=== PATIENT | female | born 1970 | race Caucasian/White ===

== ENCOUNTER 2024-09-17 22:05 | Inpatient (IN) | payer OTHER ==
[~2024-09-17] VITALS: Ht 157.5 cm; Wt 88.5 kg
[2024-09-17 23:09] LABS: BASOPHILS # (AUTO) 0.1 K/uL (0.0-0.2); BASOPHILS % (AUTO) 0.9 % (0.0-2.0); EOSINOPHILS # (AUTO) 0.1 K/uL (0.0-0.7); EOSINOPHILS % (AUTO) 1.1 % (0.0-6.0); HEMATOCRIT 44 % (33-45); HEMOGLOBIN 14.6 g/dL (11.5-14.8); LYMPHOCYTES # (AUTO) 1.4 K/uL (0.8-4.8); MEAN CORPUSCULAR HEMOGLOBIN 31 PG (26.0-33.0); MEAN CORPUSCULAR HGB CONC 33 g/dl (31.0-36.0); MEAN CORPUSCULAR VOLUME 95 fL (82-100); MONOCYTES # (AUTO) 0.3 K/uL (0.1-1.30); MONOCYTES % (AUTO) 5.3 % (2.0-12.0); NEUTROPHILS # (AUTO) 3.9 K/uL (1.8-8.9); NEUTROPHILS % (AUTO) 67.7 % (43.0-81.0); PLATELET COUNT (AUTO) 232 K/uL (150-450); RED BLOOD CELL COUNT(AUTO) 4.65 MIL/uL (4.0-5.2); RED CELL DISTRIBUTION WIDTH 13.5 % (11.5-15.0); WHITE BLOOD COUNT (AUTO) 5.8 K/uL (4.3-11.0)
[2024-09-17 23:33] LABS: CALCIUM, SERUM 9.1 mg/dL (8.5-10.1); CARBON DIOXIDE 25 mmol/L (21-32); CHLORIDE 99 mmol/L (98-107); POTASSIUM 3.7 mmol/L (3.5-5.1); SODIUM SERUM 134 mmol/L (136-145); UREA NITROGEN, BLOOD 15 mg/dL (7-18)
[2024-09-17 23:36] LABS: GLUCOSE 680 mg/dL (74-106)
[2024-09-18] MEDS: ASPIRIN 325 MG TABLET PO ONE (00:08)
[2024-09-18] MEDS: IV NS 0.9% 1,000 ML BAG IV ONE (00:08)
[2024-09-18] MEDS ORDERED: HEPARIN INFUSION/D5W 500 ML IV ONE ×2 (01:44→02:00)
[2024-09-18] MEDS ORDERED: HEPARIN SODIUM, PORCINE 5000 UNITS/1 ML VIAL ONE (01:45)
[2024-09-18] MEDS: HEPARIN SODIUM, PORCINE 5000 UNITS/1 ML VIAL IV ONE (01:57)
[2024-09-18] MEDS ORDERED: METOPROLOL TARTRATE 50 MG TABLET ONE (02:15)
[2024-09-18] MEDS ORDERED: METOPROLOL TARTRATE INJ 5 MG/5 ML AMPUL ONE (02:15)
[2024-09-18] MEDS: METOPROLOL TARTRATE INJ 5 MG/5 ML AMPUL IV ONE (02:24)
[2024-09-18] MEDS: METOPROLOL TARTRATE 25 MG TABLET PO ONE (02:25)
[2024-09-18] MEDS ORDERED: ENOXAPARIN SODIUM 80 MG/0.8 ML DISP.SYRIN SQ ONE (02:30)
[2024-09-18 02:32] LABS: INR 1.05 (0.91-1.10); PARTIAL THROMBOPLASTIN TIME 26.1 SEC (24.3-34.3); PROTHROMBIN TIME 11.1 SECS (9.2-11.1)
[2024-09-18] MEDS ORDERED: Z GUARD REMEDY 4 OZ OINT TP PRN (03:00)
[2024-09-18] MEDS ORDERED: MAG HYDROX/AL HYDROX/SIMETH 30 ML UDC PO PRN (03:00)
[2024-09-18] MEDS ORDERED: MAGNESIUM HYDROXIDE 30 ML UDC PO PRN (03:00)
[2024-09-18] MEDS ORDERED: DEXTROSE 50%-WATER 50 ML DISP.SYRIN IV PRN (03:00)
[2024-09-18] MEDS ORDERED: ACETAMINOPHEN 325 MG TABLET PO PRN (03:00)
[2024-09-18] MEDS ORDERED: METOPROLOL TARTRATE INJ 5 MG/5 ML AMPUL IVP PRN (03:30)
[2024-09-18] MEDS ORDERED: ENOXAPARIN SODIUM 30 MG/0.3 ML DISP.SYRIN ONE (03:32)
[2024-09-18] MEDS ORDERED: ENOXAPARIN SODIUM 60 MG/0.6 ML DISP.SYRIN SQ ONE (03:32)
[2024-09-18] MEDS: ENOXAPARIN SODIUM 80 MG/0.8 ML DISP.SYRIN SQ ONE (03:42)
[2024-09-18] MEDS: *INSULIN REGULAR(HUMULIN R)HUM 100 UNIT/ML VIAL SQ PRN (05:59)
[2024-09-18] MEDS: MORPHINE SULFATE INJ 2 MG/ML DISP.SYRIN IM ONE (06:25)
[2024-09-18 06:43] LABS: BASOPHILS % (AUTO) 0.8 % (0.0-2.0); EOSINOPHILS % (AUTO) 0.8 % (0.0-6.0); HEMATOCRIT 41 % (33-45); HEMOGLOBIN 13.6 g/dL (11.5-14.8); LYMPHOCYTES # (AUTO) 1.9 K/uL (0.8-4.8); LYMPHOCYTES % (AUTO) 31.1 % (20.0-44.0); MEAN CORPUSCULAR HEMOGLOBIN 31 PG (26.0-33.0); MEAN CORPUSCULAR HGB CONC 33 g/dl (31.0-36.0); MEAN CORPUSCULAR VOLUME 93 fL (82-100); MONOCYTES # (AUTO) 0.3 K/uL (0.1-1.30); MONOCYTES % (AUTO) 4.4 % (2.0-12.0); NEUTROPHILS # (AUTO) 3.8 K/uL (1.8-8.9); NEUTROPHILS % (AUTO) 62.9 % (43.0-81.0); PLATELET COUNT (AUTO) 237 K/uL (150-450); RED BLOOD CELL COUNT(AUTO) 4.38 MIL/uL (4.0-5.2); RED CELL DISTRIBUTION WIDTH 13.4 % (11.5-15.0)
[2024-09-18 07:02] LABS: INR 1.07 (0.91-1.10); PARTIAL THROMBOPLASTIN TIME 37.3 SEC (24.3-34.3); PROTHROMBIN TIME 11.3 SECS (9.2-11.1)
[2024-09-18 07:14] LABS: CALCIUM, SERUM 8.9 mg/dL (8.5-10.1); CARBON DIOXIDE 25 mmol/L (21-32); CHLORIDE 103 mmol/L (98-107); CHOLESTEROL 256 mg/dL (<200); CREATININE 0.8 mg/dL (0.6-1.3); GLUCOSE 346 mg/dL (74-106); HDL CHOLESTEROL 50 mg/dL (40-60); LDL 170 mg/dL (0-99); MAGNESIUM 1.8 mg/dL (1.8-2.4); PHOSPHORUS 3.1 mg/dL (2.5-4.9); POTASSIUM 3.9 mmol/L (3.5-5.1); SODIUM SERUM 135 mmol/L (136-145); TRIGLYCERIDES 186 mg/dL (30-150); UREA NITROGEN, BLOOD 10 mg/dL (7-18)
[2024-09-18 08:00] VITALS: BP 124/81; TEMP 97.9; O2SAT 96
[2024-09-18] MEDS: BLOOD SUGAR DIAGNOSTIC 1 EACH STRIP VI SCH (08:31)
[2024-09-18] MEDS: PANTOPRAZOLE 40 MG TABLET.DR PO SCH (09:20)
[2024-09-18] MEDS: ENOXAPARIN SODIUM 80 MG/0.8 ML DISP.SYRIN SQ SCH (09:22)
[2024-09-18] MEDS: ASPIRIN 81 MG TAB.CHEW PO SCH (10:18)
[2024-09-18] MEDS: ATORVASTATIN 40 MG TABLET PO SCH (10:18)
[2024-09-18] MEDS: INSULIN REGULAR, HUMAN 100 UNIT/ML 3 ML VIAL SQ PRN (10:28)
[2024-09-18] MEDS: NITROGLYCERIN 30 GM TUBE TP SCH (10:29)
[2024-09-18 12:00] VITALS: BP 108/76
[2024-09-18] MEDS: METOPROLOL TARTRATE 50 MG TABLET PO SCH (12:00)
[2024-09-20] MEDS ORDERED: TICA90TA PO ×2 (00:14→13:16)
[2024-09-20] MEDS ORDERED: ASPI-1169 PO ×2 (00:14→13:47)
[2024-09-20] MEDS ORDERED: ATOR80TA PO (13:16)
[2024-09-20] MEDS ORDERED: METF-442 PO (13:47)
[2024-09-20] MEDS ORDERED: LISI2.5T2 PO (13:58)
== END 2024-09-18 14:47 | disposition short-term general hospital (02) | DRG 282 ==
LOC: ER 22:07 → TELE1 09-18 03:26
PROVIDERS: ADMIT Nurse Practitioner Family; ATTEND Nurse Practitioner Family
DX: I21.4 Non-ST elevation (NSTEMI) myocardial infarction (principal); E11.9 Type 2 diabetes mellitus without complications; Z87.828 Personal history of other (healed) physical injury and trauma; Z98.890 Other specified postprocedural states
CPT/HCPCS: 36415; 71045-TC; 80048-TC; 80061-TC; 82962-TC; 83735-TC; 84100-TC; 84484-TC; 85025-TC; 85730-TC; 93307-TC; A4223; G0378; J1644; J1650; J1815; J2270; J3490; J7030

== ENCOUNTER 2024-09-19 22:28 | Inpatient (IN) | payer OTHER ==
[2024-09-20] VITALS: BP 103/57; TEMP 98.6; O2SAT 97
[2024-09-20] MEDS ORDERED: MAG HYDROX/AL HYDROX/SIMETH 30 ML UDC PO PRN
[2024-09-20] MEDS ORDERED: ACETAMINOPHEN 325 MG TABLET PO PRN
[2024-09-20] MEDS ORDERED: MAGNESIUM HYDROXIDE 30 ML UDC PO PRN
[2024-09-20] MEDS ORDERED: Z GUARD REMEDY 4 OZ OINT TP PRN
[2024-09-20] MEDS ORDERED: ONDANSETRON HCL/PF 4 MG/2 ML VIAL IVP PRN
[2024-09-20] MEDS ORDERED: ATOR40TA PO (00:14)
[2024-09-20] MEDS ORDERED: TYL2T PO (00:14)
[2024-09-20] MEDS ORDERED: TICA90TA PO ×2 (00:14→13:16)
[2024-09-20] MEDS ORDERED: GLUC1KIT2 IM (00:14)
[2024-09-20] MEDS ORDERED: POLY17PO4 PO (00:14)
[2024-09-20] MEDS ORDERED: INSU100V42 SQ ×2 (00:14→08:26)
[2024-09-20] MEDS ORDERED: BLOO-374 IN (00:14)
[2024-09-20] MEDS ORDERED: ASPI-1169 PO ×2 (00:14→13:47)
[2024-09-20] MEDS ORDERED: MELA3TAB70 PO (00:14)
[2024-09-20] MEDS ORDERED: ONDA4TAB5 IV (00:14)
[2024-09-20] MEDS ORDERED: NALO1DIS2 IV (00:14)
[2024-09-20] MEDS ORDERED: DEXTROSE 50%-WATER 50 ML DISP.SYRIN IV PRN (00:30)
[2024-09-20 04:00] VITALS: BP 112/79; TEMP 98.1; O2SAT 96
[2024-09-20 06:49] LABS: BASOPHILS % (AUTO) 0.6 % (0.0-2.0); EOSINOPHILS # (AUTO) 0.1 K/uL (0.0-0.7); EOSINOPHILS % (AUTO) 1.3 % (0.0-6.0); HEMATOCRIT 38 % (33-45); HEMOGLOBIN 12.9 g/dL (11.5-14.8); LYMPHOCYTES # (AUTO) 1.7 K/uL (0.8-4.8); LYMPHOCYTES % (AUTO) 33.2 % (20.0-44.0); MEAN CORPUSCULAR HEMOGLOBIN 31 PG (26.0-33.0); MEAN CORPUSCULAR HGB CONC 34 g/dl (31.0-36.0); MEAN CORPUSCULAR VOLUME 93 fL (82-100); MONOCYTES # (AUTO) 0.3 K/uL (0.1-1.30); MONOCYTES % (AUTO) 6.1 % (2.0-12.0); NEUTROPHILS # (AUTO) 2.9 K/uL (1.8-8.9); NEUTROPHILS % (AUTO) 58.8 % (43.0-81.0); PLATELET COUNT (AUTO) 190 K/uL (150-450); RED BLOOD CELL COUNT(AUTO) 4.11 MIL/uL (4.0-5.2); RED CELL DISTRIBUTION WIDTH 13.3 % (11.5-15.0)
[2024-09-20 07:37] LABS: ALANINE AMINOTRANSFERASE 36 U/L (12-78); ALBUMIN 2.3 g/dL (3.4-5.0); ALKALINE PHOSPHATASE 105 U/L (46-116); ASPARTATE AMINOTRANSFERASE 61 U/L (15-37); BILIRUBIN,TOTAL 0.5 mg/dL (0.2-1.0); CALCIUM, SERUM 8.5 mg/dL (8.5-10.1); CARBON DIOXIDE 20 mmol/L (21-32); CHLORIDE 106 mmol/L (98-107); CREATININE 0.7 mg/dL (0.6-1.3); GLUCOSE 236 mg/dL (74-106); MAGNESIUM 1.5 mg/dL (1.8-2.4); PHOSPHORUS 3.9 mg/dL (2.5-4.9); POTASSIUM 3.7 mmol/L (3.5-5.1); SODIUM SERUM 140 mmol/L (136-145); TOTAL PROTEIN, SERUM 6.4 g/dL (6.4-8.2); UREA NITROGEN, BLOOD 9 mg/dL (7-18)
[2024-09-20] MEDS: PANTOPRAZOLE 40 MG VIAL IV SCH (08:09)
[2024-09-20] MEDS: INSULIN REGULAR, HUMAN 100 UNIT/ML 3 ML VIAL SQ PRN (08:17)
[2024-09-20] MEDS: BLOOD SUGAR DIAGNOSTIC 1 EACH STRIP IN SCH (08:18)
[2024-09-20] MEDS ORDERED: DEXT50DI5 IV (08:26)
[2024-09-20] MEDS ORDERED: INSULIN GLARGINE-YF SQ (08:26)
[2024-09-20] MEDS ORDERED: DEXT38GE12 PO (08:26)
[2024-09-20] MEDS: ATORVASTATIN 40 MG TABLET PO SCH (10:00)
[2024-09-20] MEDS: ASPIRIN 81 MG TAB.CHEW PO SCH (10:00)
[2024-09-20] MEDS: TICAGRELOR 90 MG TABLET PO SCH (10:00)
[2024-09-20] MEDS: Magnesium 1GM/D5W 100ML PREMIX 100 ML IV SCH (10:01)
[2024-09-20 11:21] VITALS: BP 105/66; TEMP 98.6; O2SAT 99
[2024-09-20 12:00] VITALS: BP 101/60; TEMP 98.1; O2SAT 93
[2024-09-20] MEDS ORDERED: ATOR80TA PO (13:16)
[2024-09-20] MEDS ORDERED: METF-442 PO (13:47)
[2024-09-20] MEDS ORDERED: LISI2.5T2 PO (13:58)
[2024-09-20 16:00] VITALS: BP 94/70; TEMP 98.1; O2SAT 95
== END 2024-09-20 17:15 | disposition home or self-care (01) | DRG 303 ==
LOC: TELE1 22:28
PROVIDERS: ADMIT Nurse Practitioner Acute Care; ATTEND Nurse Practitioner Acute Care
DX: I25.10 Atherosclerotic heart disease of native coronary artery without angina pectoris (principal); D68.59 Other primary thrombophilia; Z98.890 Other specified postprocedural states; E11.65 Type 2 diabetes mellitus with hyperglycemia; E78.5 Hyperlipidemia, unspecified; E66.01 Morbid (severe) obesity due to excess calories; I10 Essential (primary) hypertension; I25.82 Chronic total occlusion of coronary artery; Z95.5 Presence of coronary angioplasty implant and graft; Z79.82 Long term (current) use of aspirin; Z79.84 Long term (current) use of oral hypoglycemic drugs; Z79.899 Other long term (current) drug therapy; Z79.4 Long term (current) use of insulin
CPT/HCPCS: 36415; 71045-TC; 80053-TC; 82962-TC; 83735-TC; 84100-TC; 84484-TC; 85025-TC; A4223; G0378; J1815; J2470; J3475